=== PATIENT | male | born 1995 | race African-American/Black ===

== ENCOUNTER 2023-08-29 07:35 | Emergency (ER) | payer BC ==
[~2023-08-29] VITALS: Ht 182.9 cm; Wt 104.3 kg
[2023-08-29 07:58] VITALS: BP_SYST 146; PULSE 85; RESP 18; TEMP 98.3; O2SAT 98
[2023-08-29] MEDS ORDERED: OLOP5DRO24 EACH EYE (08:02)
[2023-08-29] MEDS ORDERED: OFLO5DRO6 EACH EYE (08:02)
[2023-08-29 08:29] VITALS: BP_SYST 146; PULSE 85; RESP 18; TEMP 98.3; O2SAT 98
== END 2023-08-29 08:30 | disposition home or self-care (01) ==
LOC: SED 07:35
DX: H10.89 Other conjunctivitis (principal); Z79.899 Other long term (current) drug therapy
CPT/HCPCS: 99283